=== PATIENT | female | born 1990 | race Hispanic/Latino ===

== ENCOUNTER 2018-04-30 17:03 | Emergency (ER) | payer OTHER ==
[2018-04-30 18:19] VITALS: O2SAT 100
--- NOTE | 2018-04-30 19:22 | ED PDOC ---
Lower Extremity Pain/Injury Time Seen by Provider: 04/30/18 18:58 Chief Complaint (Nursing): Lower Extremity Problem/Injury Chief Complaint (Provider): Lower Extremity Problem/Injury History Per: Patient History/Exam Limitations: no limitations Onset/Duration Of Symptoms: Hrs (x24) Additional Complaint(s): Patient is a 27 y/o female, denies any PMH, presents to ED with complaints of "pins and needles" to her left lower extremity for the past x24 hours. Patient notes that the sensation is constant, and it started in her foot and seems to be progressing up to mi calf now. Tawanna denies any redness or swelling to LE. no "pain," no muscle weakness. Pt is able to ambulate with steady gait. Additionally, Pt denies any associated headache, dizziness, or back pain. Past Medical History Reviewed: Nursing Documentation, Vital Signs Vital Signs: Last Vital Signs Temp 97.6 F 04/30/18 18:15 Pulse 84 04/30/18 18:15 Resp 16 04/30/18 18:15 BP 116/72 04/30/18 18:15 Pulse Ox 100 04/30/18 18:15 - Medical History PMH: No Chronic Diseases - Surgical History Surgical History: No Surg Hx - Family History Family History: States: No Known Family Hx - Living Arrangements Living Arrangements: With Family - Social History Current smoker - smoking cessation education provided: No Alcohol: Social Drugs: Denies - Home Medications Home Medications: Ambulatory Orders Medication Instructions Recorded Methylprednisolone [Medrol Dose 4 mg PO DAILY #21 mg 04/30/18 Pack (21 tabs)] RX: Gabapentin 300 mg PO DAILY #6 capsule 04/30/18 - Allergies Allergies/Adverse Reactions: Allergies Allergy/AdvReac Type Severity Reaction Status Date / Time hydrocodone Allergy RASH Verified 04/30/18 18:15 Wells Criteria for PE - Wells Criteria for Pulmonary Embolism Clinical Signs and Symptoms of DVT: No P.E is #1 Diagnosis, or Equally Likely: No Heart Rate >100: No Immobilization at least 3 days;Surgery previous 4 weeks: No Previous, objectively diagnosed PE or DVT: No Hemoptysis: No Malignancy w/treatment within 6 months, or palliative: No Total Score: 0 Review of Systems ROS Statement: Except As Marked, All Systems Reviewed And Found Negative Musculoskeletal: Positive for: Leg Pain (left leg ). Negative for: Back Pain Neurological: Negative for: Headache, Dizziness Physical Exam - Reviewed Nursing Documentation Reviewed: Yes Vital Signs Reviewed: Yes - Physical Exam Appears: Positive for: Well, Non-toxic, No Acute Distress Head Exam: Positive for: ATRAUMATIC, NORMAL INSPECTION, NORMOCEPHALIC Skin: Positive for: Normal Color, Warm, DRY Eye Exam: Positive for: EOMI, Normal appearance, PERRL Extremity: Positive for: Normal ROM, Other (Strength intact. ). Negative for: Pedal Edema, Deformity, Swelling DTR - Knee (R): 2+ DTR - Knee (L): 2+ DTR - Ankle (R): 2+ DTR - Ankle (L): 2+ Neurologic/Psych: Positive for: Alert, Oriented. Negative for: Motor/Sensory Deficits - Laboratory Results Result Diagrams: 04/30/18 21:15 04/30/18 21:15 - ECG O2 Sat by Pulse Oximetry: 100 (rA) Pulse Ox Interpretation: Normal Medical Decision Making Medical Decision Making: Time: 1909 Impression: 27 y/o female complaining of "pins and needles" to left leg, consistent with LE radiculopathy. Time: 21:15 --Patient reports the sensation is worsened while she is lying down and additionally she feels it in her right foot. Plan: --US Duplex lower extremity ordered: Negative for DVT --Lumbar CT: (+) herniation L5/S1 Labs resulted and reviewed with Pt who demonstrated full understanding Pt doing well on re-eval and appeared calm after discussion of results. Pt given RX for Medrol Dose Pack and Gabapentin. Advised Ortho follow up and Pt given PCP as well, and Neuro referral at request Pt advised to return to ED if at anytime condition worsens. Signs and symptoms of Cauda Equina disucssed at length Scribe Attestation: Documented by Jeremy Auguste, acting as a scribe for Rosie Hopson PA-C Provider Scribe Attestation: All medical record entries made by the Scribe were at my direction and personally dictated by me. I have reviewed the chart and agree that the record accurately reflects my personal performance of the history, physical exam, medical decision making, and the department course for this patient. I have also personally directed, reviewed, and agree with the discharge instructions and disposition. Disposition - Clinical Impression Clinical Impression: Lumbar radiculopathy, Disc herniation - Disposition Referrals: Tristin Guerra MD [Medical Doctor] - Leonidas Mckeon MD [Staff Provider] - Liana Jackson MD [Medical Doctor] - Disposition: Routine/Home Disposition Time: 21:00 Condition: STABLE Prescriptions: RX: Gabapentin 300 mg PO DAILY #6 capsule Methylprednisolone [Medrol Dose Pack (21 tabs)] 4 mg PO DAILY #21 mg Instructions: Herniated Disc, Radiculopathy Forms: [employer] ([place]ian)
[2018-04-30 21:52] LABS: BASO % 0.5 % (0.0-2.0); EOS % 0.1 % (0.0-4.0); HEMOGLOBIN 13.4 g/dL (12.0-16.0); LYMPH # 1.4 K/uL (1.0-4.3); LYMPH % 17.5 % (20.0-40.0); MEAN CELL VOLUME 89.6 fl (81.0-99.0); MEAN CORPUSCULAR HEMOGLOBIN 30.6 pg (27.0-31.0); MEAN CORPUSCULAR HGB CONC 34.1 g/dL (33.0-37.0); MEAN PLATELET VOLUME 7.9 fl (7.2-11.7); MONO # 0.5 K/uL (0.0-0.8); MONO % 5.9 % (0.0-10.0); NRBC % 0.1 % (0.0-0.0); RBC 4.38 Mil/uL (3.80-5.20); RED CELL DISTRIBUTION WIDTH 12.6 % (11.5-14.5); WHITE BLOOD COUNT 7.9 K/uL (4.8-10.8)
[2018-04-30 21:57] LABS: ALB/GLOB RATIO 1.3 (1.0-2.1); ALBUMIN 4.8 g/dL (3.5-5.0); ALT/SGPT 35 U/L (9-52); AST/SGOT 42 U/L (14-36); BLOOD UREA NITROGEN 13 mg/dl (7-17); CALCIUM 9.8 mg/dL (8.4-10.2); GFR NON-AFRICAN AMERICAN > 60
[2018-04-30 22:18] VITALS: BP 126/83; PULSE 73; RESP 15; TEMP 98.7
--- NOTE | 2018-05-01 10:40 | CT ---
Date of service: 04/30/2018 PROCEDURE: CT Lumbar Spine without contrast HISTORY: LE radiculopathy COMPARISON: None. TECHNIQUE: Axial computed tomography images were obtained of the lumbar spine without the use of intravenous contrast. Coronal and sagittal reformatted images were created and reviewed. Radiation dose: Total exam DLP = 280.72 mGy-cm. This CT exam was performed using one or more of the following dose reduction techniques: Automated exposure control, adjustment of the mA and/or kV according to patient size, and/or use of iterative reconstruction technique. FINDINGS: VERTEBRAE: Unremarkable. No fracture. Normal alignment. DISCS/SPINAL CANAL/NEURAL FORAMINA: L1-2: Unremarkable. L2-3: Unremarkable. L3-4: Unremarkable. L4-5: Unremarkable. L5-S1: Mild bulging annulus. PARASPINAL SOFT TISSUES: Unremarkable. OTHER FINDINGS: None. IMPRESSION: No acute findings related to/accounting for the clinical presentation. Bulging annulus fibrosus L5-S1. Concordant results (preliminary interpretation) provided by [employer]. Procedure Completed: 20:57. Preliminary Report: Dictated and Authenticated: 21:43. Final Interpretation: 10:38. May 01, 2018
--- NOTE | 2018-05-01 10:57 | US ---
Date of service: 04/30/2018 HISTORY: r/o dvt. PRIORS: None. FINDINGS: 2-D, color and duplex Doppler analysis of the lower extremity venous circulation using routine protocol from the femoral veins through the popliteal veins. Venous compressibility: Normal. Flow and augmentation patterns: Normal. Visualized veins upper third of calf: Normal. Love cyst: None. IMPRESSION: No sonographic or Doppler evidence for DVT in left lower extremity. Concordant findings (preliminary report) provided by RITA CARRANZA.
== END 2018-04-30 22:17 | disposition home or self-care (01) ==
LOC: H.ER 17:03
DX: M54.16 Radiculopathy, lumbar region (principal); M51.27 Other intervertebral disc displacement, lumbosacral region